=== PATIENT | female | born 1980 | race Caucasian/White ===

== ENCOUNTER 2018-10-23 07:53 | Day surgery (SDC) | payer BC, OTHER ==
[2018-10-19 10:34] VITALS: BMI 28.0
[~2018-10-23 07:53] MED LIST: LACTATED RINGERS 1,000 ML IV SCH; LIDOCAINE 1% 20 ML VIAL (10MG/ML) FOR IV START INTRADERMA PRN
[2018-10-23 08:19] VITALS: TEMP 98.2
[2018-10-23] MEDS ORDERED: LIDOCAINE 1% INJ 10MG/ML (20 ML MDV) ONE (08:47)
[2018-10-23] MEDS ORDERED: PROPOFOL 10 MG/ML 20 ML VIAL IV ONE (08:47)
--- NOTE | 2018-10-23 09:11 | P.PCN ---
Date of Procedure: 10/23/18 Procedure(s) Performed: Procedure: Esophagogastroduodenoscopy and biopsy. Preoperative diagnosis: Chronic reflux symptoms despite therapy. Postoperative diagnosis: 1. Small sliding hiatal hernia with no obvious esophagitis or complicated reflux disease. 2. Mild antral gastritis. 3. Multiple biopsies obtained from the duodenum, antrum and esophagus. Preparation and sedation: Was provided by anesthesia. Brief clinical history: The patient is a 37-year-old female who is scheduled for this evaluation because of chronic reflux symptoms. She has been also complaining of nausea and vomiting. She has been restarted on omeprazole 40 mg daily for more than 4 weeks with partial response at this time. This evaluation is to assess for esophagitis, complicated reflux disease, or other pathology. Procedure: With the patient on her left lateral decubitus position and after informed consent and adequate sedation, I passed the Olympus-GIF 03/29/2019 video upper endoscope through the cricopharyngeus down the esophagus. GE junction was around 39 cm from the incisors and there was a small sliding hiatal hernia but no obvious esophagitis or complicated reflux disease. The endoscope was then passed into the stomach which was insufflated with air and inspected in detail including the retroflex view in the cardia. There was some mottling and erythema in the antrum but no ulcers or erosions. Pyloric channel , duodenal bulb, post bulbar area and descending duodenum appeared within normal limits. Because of her symptoms, I obtained biopsies from the duodenum, antrum and esophagus then the endoscope was withdrawn. The patient tolerated the procedure well. Plan: The patient was reassured. She was advised to continue antireflux diet and measures. Will await biopsy results and make further recommendations based on her course and biopsy results. She will follow-up with you as planned and I will keep you updated on her progress.
[2018-10-23 09:13] VITALS: RESP 18
[2018-10-23 09:30] VITALS: BP 100/67; PULSE 72
== END 2018-10-23 09:52 | disposition home or self-care (01) ==
LOC: ORWHC2ENDO 07:53
DX: K29.50 Unspecified chronic gastritis without bleeding (principal); K21.9 Gastro-esophageal reflux disease without esophagitis; K44.9 Diaphragmatic hernia without obstruction or gangrene; J45.909 Unspecified asthma, uncomplicated; F39 Unspecified mood [affective] disorder; Z79.899 Other long term (current) drug therapy; Z88.0 Allergy status to penicillin
CPT/HCPCS: 81025; 88305; 43239; J2001; J2704

== ENCOUNTER 2020-02-28 12:40 | Emergency (ER) | payer OTHER ==
[2020-02-28 13:07] VITALS: RESP 18
[2020-02-28] MEDS ORDERED: PANTOPRAZOLE 40 MG/10 ML VIAL IVP STA (13:31)
[2020-02-28] MEDS ORDERED: SODIUM CHLORIDE 0.9% 1,000 ML IV STA (13:31)
[2020-02-28] MEDS ORDERED: SODIUM CHLORIDE 0.9% 500 ML 500 ML IV STA (13:31)
--- NOTE | 2020-02-28 13:34 | ED ---
GI Bleed HPI - General Chief complaint: Abdominal Pain Stated complaint: Abd pain,Diarrhea Time Seen by Provider: 02/28/20 13:31 Source: patient, RN notes reviewed, old records reviewed Mode of arrival: ambulatory Limitations: no limitations - History of Present Illness Initial comments: This is a 39-year-old female DF for evaluation patient has a for evaluation of blood in the stool blood mixed with stool with diffuse abdominal pain. No fevers no history of similar symptoms. No blood thinners. No trauma. 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 with similar complaint MD complaint: blood streaked stool -: days(s) Severity scale (1-10): 3 Quality: cramping Consistency: constant Improves with: none Worsens with: none Associated Symptoms: abdominal pain, nausea Treatments Prior to Arrival: none - Related Data Home Medications Medication Instructions Recorded Confirmed ALPRAZolam [Xanax] 0.25 mg PO BID PRN 01/18/16 10/23/18 Albuterol Sulfate [Proair Hfa] 2 puff INHALATION Q6HR PRN 10/19/18 10/23/18 Dextroamphetamine/Amphetamine 50 mg PO DAILY 10/19/18 10/19/18 [Mydayis ER 50 mg Capsule] Famotidine [Pepcid] 20 mg PO BID 10/19/18 10/19/18 Omeprazole [PriLOSEC] 40 mg PO DAILY 10/19/18 10/19/18 PARoxetine HCL [Paxil Cr] 37.5 mg PO HS 10/19/18 10/19/18 Sucralfate [Carafate] 1 gm PO ACHS 10/19/18 10/19/18 Ziprasidone HCl [Geodon] 40 mg PO HS 10/19/18 10/19/18 Allergies Allergy/AdvReac Type Severity Reaction Status Date / Time Penicillins Allergy Rash/Hives Verified 02/28/20 13:07 Review of Systems ROS Statement: Those systems with pertinent positive or pertinent negative responses have been documented in the HPI. ROS Other: All systems not noted in ROS Statement are negative. Past Medical History Past Medical History: Asthma, GERD/Reflux Additional Past Medical History / Comment(s): ABDOMINAL PAIN, VOMITING History of Any Multi-Drug Resistant Organisms: None Reported Past Surgical History: Tonsillectomy Additional Past Surgical History / Comment(s): sinus sx Past Anesthesia/Blood Transfusion Reactions: Motion Sickness Past Psychological History: ADD/ADHD, Anxiety, Bipolar Smoking Status: Current every day smoker Past Alcohol Use History: Occasional Past Drug Use History: Marijuana - Past Family History Mother Family Medical History: Cancer Additional Family Medical History / Comment(s): LUNG CANCER Father Family Medical History: Cancer General Exam Limitations: no limitations General appearance: alert, in no apparent distress Head exam: Present: atraumatic, normocephalic, normal inspection Eye exam: Present: normal appearance, PERRL, EOMI. Absent: scleral icterus, conjunctival injection, periorbital swelling ENT exam: Present: normal exam, mucous membranes moist Neck exam: Present: normal inspection. Absent: tenderness, meningismus, lymphadenopathy Respiratory exam: Present: normal lung sounds bilaterally. Absent: respiratory distress, wheezes, rales, rhonchi, stridor Cardiovascular Exam: Present: normal rhythm, tachycardia, normal heart sounds. Absent: systolic murmur, diastolic murmur, rubs, gallop, clicks GI/Abdominal exam: Present: soft, normal bowel sounds. Absent: distended, tenderness, guarding, rebound, rigid Extremities exam: Present: normal inspection, full ROM, normal capillary refill. Absent: tenderness, pedal edema, joint swelling, calf tenderness Back exam: Present: normal inspection Neurological exam: Present: alert, oriented X3, CN II-XII intact Psychiatric exam: Present: normal affect, normal mood Skin exam: Present: warm, dry, intact, normal color. Absent: rash Course Vital Signs 02/28/20 13:04 Temperature 98.2 F Pulse Rate 102 H Respiratory 18 Rate Blood Pressure 112/71 O2 Sat by Pulse 100 Oximetry - Reevaluation(s) Reevaluation #1: 02/28/20 15:01 Medical record is reviewed Reevaluation #2: 02/28/20 16:58 Patient refuses hospital admission feeling well Medical Decision Making - Medical Decision Making 39 female DF for evaluation patient has persistent colitis of GI bleed stool and blood patient does have significant colitis here in the ER no active bleeding no active diarrhea here in the ER will place on antibiotics and follow-up on outpatient surgery patient does not want inpatient admission - Lab Data Result diagrams: 02/28/20 13:50 02/28/20 13:50 Lab Results 02/28/20 02/28/20 02/28/20 Range/Units 13:45 13:50 13:50 WBC 18.5 H (3.8-10.6) k/uL RBC 4.95 (3.80-5.40) m/uL Hgb 14.8 (11.4-16.0) gm/dL Hct 46.7 H (34.0-46.0) % MCV 94.2 (80.0-100.0) fL MCH 29.8 (25.0-35.0) pg MCHC 31.6 (31.0-37.0) g/dL RDW 12.2 (11.5-15.5) % Plt Count 343 (150-450) k/uL Neutrophils % 84 % Lymphocytes % 10 % Monocytes % 4 % Eosinophils % 2 % Basophils % 0 % Neutrophils # 15.4 H (1.3-7.7) k/uL Lymphocytes # 1.8 (1.0-4.8) k/uL Monocytes # 0.7 (0-1.0) k/uL Eosinophils # 0.3 (0-0.7) k/uL Basophils # 0.0 (0-0.2) k/uL PT 9.6 (9.0-12.0) sec INR 0.9 (<1.2) APTT 23.8 (22.0-30.0) sec Sodium (137-145) mmol/L Potassium (3.5-5.1) mmol/L Chloride (98-107) mmol/L Carbon Dioxide (22-30) mmol/L Anion Gap mmol/L BUN (7-17) mg/dL Creatinine (0.52-1.04) mg/dL Est GFR (CKD-EPI)AfAm (>60 ml/min/1.73 sqM) Est GFR (CKD-EPI)NonAf (>60 ml/min/1.73 sqM) Glucose (74-99) mg/dL Calcium (8.4-10.2) mg/dL Magnesium (1.6-2.3) mg/dL Total Bilirubin (0.2-1.3) mg/dL AST (14-36) U/L ALT (4-34) U/L Alkaline Phosphatase (38-126) U/L Troponin I (0.000-0.034) ng/mL Total Protein (6.3-8.2) g/dL Albumin (3.5-5.0) g/dL Blood Type B Positive Blood Type Recheck No Previous Record Bld Type Recheck Status CABO Indicated Antibody Screen NEGATIVE Spec Expiration Date 03/02/2020234402/28/20 02/28/20 Range/Units 13:50 13:50 WBC (3.8-10.6) k/uL RBC (3.80-5.40) m/uL Hgb (11.4-16.0) gm/dL Hct (34.0-46.0) % MCV (80.0-100.0) fL MCH (25.0-35.0) pg MCHC (31.0-37.0) g/dL RDW (11.5-15.5) % Plt Count (150-450) k/uL Neutrophils % % Lymphocytes % % Monocytes % % Eosinophils % % Basophils % % Neutrophils # (1.3-7.7) k/uL Lymphocytes # (1.0-4.8) k/uL Monocytes # (0-1.0) k/uL Eosinophils # (0-0.7) k/uL Basophils # (0-0.2) k/uL PT (9.0-12.0) sec INR (<1.2) APTT (22.0-30.0) sec Sodium 135 L (137-145) mmol/L Potassium 4.2 (3.5-5.1) mmol/L Chloride 101 (98-107) mmol/L Carbon Dioxide 26 (22-30) mmol/L Anion Gap 8 mmol/L BUN 9 (7-17) mg/dL Creatinine 0.68 (0.52-1.04) mg/dL Est GFR (CKD-EPI)AfAm >90 (>60 ml/min/1.73 sqM) Est GFR (CKD-EPI)NonAf >90 (>60 ml/min/1.73 sqM) Glucose 88 (74-99) mg/dL Calcium 8.9 (8.4-10.2) mg/dL Magnesium 1.9 (1.6-2.3) mg/dL Total Bilirubin 1.4 H (0.2-1.3) mg/dL AST 18 (14-36) U/L ALT 15 (4-34) U/L Alkaline Phosphatase 63 (38-126) U/L Troponin I <0.012 (0.000-0.034) ng/mL Total Protein 6.7 (6.3-8.2) g/dL Albumin 3.9 (3.5-5.0) g/dL Blood Type Blood Type Recheck Bld Type Recheck Status Antibody Screen Spec Expiration Date - Radiology Data Radiology results: report reviewed (CT of the abdomen pelvis positive for colitis), image reviewed Disposition Clinical Impression: Colitis, GI bleed Disposition: HOME SELF-CARE Condition: Good Instructions (If sedation given, give patient instructions): Colitis (ED), Infectious Colitis (ED) Is patient prescribed a controlled substance at d/c from ED?: No Referrals: Lynsey Lang MD [STAFF PHYSICIAN] - 1-2 days Darryl Calderon MD [STAFF PHYSICIAN] - 1-2 days
[2020-02-28 14:12] LABS: Basophils % (A) 0 %; Eosinophils # (A) 0.3 k/uL (0-0.7); Eosinophils % (A) 2 %; HCT 46.7 % (34.0-46.0); HGB 14.8 gm/dL (11.4-16.0); Lymphocytes # (A) 1.8 k/uL (1.0-4.8); Lymphocytes % (A) 10 %; MCH 29.8 pg (25.0-35.0); MCHC 31.6 g/dL (31.0-37.0); MCV 94.2 fL (80.0-100.0); Mean Platelet Volume 7.1; Monocytes # (A) 0.7 k/uL (0-1.0); Monocytes % (A) 4 %; Neutrophils # (A) 15.4 k/uL (1.3-7.7); Neutrophils % (A) 84 %; Platelet Count 343 k/uL (150-450); RBC 4.95 m/uL (3.80-5.40); RDW 12.2 % (11.5-15.5); WBC 18.5 k/uL (3.8-10.6)
[2020-02-28 14:22] LABS: ALT 15 U/L (4-34); AST 18 U/L (14-36); African American GFR (CKD) >90 (>60 ml/min/1.73 sqM); Albumin 3.9 g/dL (3.5-5.0); Alkaline Phosphatase 63 U/L (38-126); Anion Gap 8 mmol/L; Blood Urea Nitrogen 9 mg/dL (7-17); Calcium 8.9 mg/dL (8.4-10.2); Carbon Dioxide 26 mmol/L (22-30); Chloride 101 mmol/L (98-107); Glucose 88 mg/dL (74-99); INR 0.9 (<1.2); Magnesium 1.9 mg/dL (1.6-2.3); Non-African American GFR(CKD) >90 (>60 ml/min/1.73 sqM); Partial Thromboplastin Time 23.8 sec (22.0-30.0); Potassium 4.2 mmol/L (3.5-5.1); Prothrombin Time 9.6 sec (9.0-12.0); Sodium 135 mmol/L (137-145); Total Bilirubin 1.4 mg/dL (0.2-1.3); Total Protein 6.7 g/dL (6.3-8.2)
[2020-02-28] MEDS ORDERED: MORPHINE SULFATE 4 MG/ML SYRINGE IVP STA (14:25)
--- NOTE | 2020-02-28 16:22 | CT ---
EXAMINATION TYPE: CT abdomen pelvis w con DATE OF EXAM: 02/28/2020 COMPARISON: NONE HISTORY: 39-year-old female Generalized abdominal pain. TECHNIQUE: Contiguous axial scanning of the abdomen and pelvis following administration of 100 ml Iso adan 300 IV contrast. Delayed images through the kidneys and coronal/sagittal reconstructions perform ed. CT DLP: 1075.3 mGycm Automated exposure control for dose reduction was used. FINDINGS: LUNG BASES: Some dependent atelectasis is noted. No pleural effusion. LIVER/GB: No significant abnormality is appreciated. PANCREAS: No significant abnormality is seen. SPLEEN: No significant abnormality is seen. ADRENALS: No significant abnormality is seen. KIDNEYS: Cortical cysts within the right kidney measuring 1.5 and 0.9 cm. Small cortical cyst medial left kidney measuring 7 mm. Symmetric uptake and excretion of contrast from both kidneys. LYMPH NODES: No mesenteric or retroperitoneal lymphadenopathy. BOWEL: Normal appendix. No dilated small bowel, free fluid, or free air. Moderate pancolonic wall thickening sparing the ascending colon. There is some loss of haustral bruna ngs especially of the transverse colon and mild pericolonic hazy inflammation. PELVIS: Arcuate configuration to the anteverted uterus. There is moderate cul-de-sac free fluid. Both ovaries are visualized. 2.1 cm dominant follicle or functional cyst in the right ovary. No pelvic ly mphadenopathy. BONES: No osseous destructive process. IMPRESSION: 1. MODERATE TO SEVERE INFECTIOUS OR INFLAMMATORY COLITIS SPARING THE ASCENDING COLON. INFLAMMATORY NADEEN WEL DISEASE IS ALSO IN THE DIFFERENTIAL. 2. MODERATE CUL-DE-SAC FREE FLUID COULD BE PHYSIOLOGIC OR COULD BE REACTIVE TO THE COLONIC INFLAMMATI ON. NO ABSCESS OR FREE AIR.
[2020-02-28 17:15] VITALS: BP 112/78; PULSE 86; TEMP 97.5
== END 2020-02-28 17:15 | disposition home or self-care (01) ==
LOC: EC 12:40
DX: K52.9 Noninfective gastroenteritis and colitis, unspecified (principal); K21.9 Gastro-esophageal reflux disease without esophagitis; J45.909 Unspecified asthma, uncomplicated; F41.9 Anxiety disorder, unspecified; F90.9 Attention-deficit hyperactivity disorder, unspecified type; F31.9 Bipolar disorder, unspecified; Z79.51 Long term (current) use of inhaled steroids; Z79.899 Other long term (current) drug therapy; Z88.0 Allergy status to penicillin; F17.200 Nicotine dependence, unspecified, uncomplicated
CPT/HCPCS: 36415; 86900; 86901; 80053; 83735; 84484; 85025; 85610; 85730; 86850; 74177; 99284; 96374; 96375; 96361 ×3; J2270; C9113; Q9967

== ENCOUNTER → 2021-09-21 | Outpatient (CLI) | payer OTHER ==
[2021-09-21 14:55] LABS: Chol/HDL Ratio 3.54 Ratio; LDL Cholesterol,Calculated 93.5 mg/dL (0.0-131.0); VLDL Calculation 13.42 mg/dL (5.00-40.00)
== END | disposition home or self-care (01) ==
LOC: LABWHC1 09:41
PROVIDERS: ATTEND Psychiatry & Neurology Geriatric Psychiatry
DX: F31.9 Bipolar disorder, unspecified (principal)
CPT/HCPCS: 36415; 80061; 83036; 84443

== ENCOUNTER → 2023-01-21 | Outpatient (CLI) | payer OTHER ==
[2023-01-21 16:04] LABS: Basophils # (A) 0.03 X 10*3/uL (0.00-0.10); Basophils % (A) 0.4 %; Eosinophils # (A) 0.16 X 10*3/uL (0.04-0.35); Eosinophils % (A) 2.3 %; HCT 42.1 % (37.2-46.3); HGB 13.7 g/dL (12.0-15.0); Immature Grans, Automated 0.3 %; Lymphocytes # (A) 2.15 X 10*3/uL (0.90-5.00); Lymphocytes % (A) 30.5 %; MCH 30.4 pg (27.0-32.0); MCHC 32.5 g/dL (32.0-37.0); MCV 93.3 fL (80.0-97.0); Mean Platelet Volume 10.2 fL (9.5-12.2); Monocytes % (A) 9.9 %; NRBC Per 100 WBC 0 /100 WBCS (0.0-0.0); Neutrophils % (A) 56.6 %; Platelet Count 340 X 10*3/uL (140-440); RBC 4.51 X 10*6/uL (4.10-5.20); RBC Morphology NORMAL; RDW 12.7 % (11.5-14.5); WBC 7.06 X 10*3/uL (4.50-10.00)
[2023-01-21 16:32] LABS: ALT 23 U/L (8-44); AST 22 U/L (13-35); African American GFR (CKD) 122.8 (60.0-200.0); Albumin 4.2 g/dL (3.8-4.9); Albumin/Globulin Ratio 1.87 (1.60-3.17); Alkaline Phosphatase 59 U/L (41-126); BUN/Creat Ratio 16.45 Ratio (12.00-20.00); Blood Urea Nitrogen 11.6 mg/dL (9.0-27.0); Carbon Dioxide 25.8 mmol/L (20.0-27.5); Chloride 104 mmol/L (96-109); Globulin 2.2 g/dL (1.6-3.3); Glucose 98 mg/dL (70-110); Potassium 4.4 mmol/L (3.5-5.5); Sodium 139 mmol/L (135-145); Total Bilirubin <0.15 mg/dL (0.30-1.20); Total Protein 6.4 g/dL (6.2-8.2)
== END | disposition home or self-care (01) ==
LOC: LABWHC1 08:27
PROVIDERS: ATTEND Physician Assistant
DX: F31.89 Other bipolar disorder (principal)
CPT/HCPCS: 36415; 80053; 82306; 82607; 82746; 84439; 84443; 85025

== ENCOUNTER → 2024-01-20 | Outpatient (CLI) | payer OTHER ==
[2024-01-20 18:17] LABS: Basophils # (A) 0.03 X 10*3/uL (0.00-0.10); Basophils % (A) 0.4 %; Eosinophils # (A) 0.18 X 10*3/uL (0.04-0.35); Eosinophils % (A) 2.3 %; HCT 43.1 % (37.2-46.3); HGB 13.9 g/dL (12.0-15.0); Lymphocytes # (A) 1.95 X 10*3/uL (0.90-5.00); Lymphocytes % (A) 24.4 %; MCH 30.2 pg (27.0-32.0); MCHC 32.3 g/dL (32.0-37.0); MCV 93.7 FL (80.0-97.0); Mean Platelet Volume 9.6 FL (9.5-12.2); Monocytes # (A) 0.54 X 10*3/uL (0.20-1.00); Monocytes % (A) 6.8 %; NRBC Per 100 WBC 0 X 10*3/uL (0.00-0.01); Neutrophils # (A) 5.27 X 10*3/uL (1.80-7.70); Neutrophils % (A) 65.7 %; Platelet Count 385 X 10*3/uL (140-440); RDW 12.3 % (11.5-14.5)
[2024-01-20 19:22] LABS: ALT 17 U/L (8-44); AST 21 U/L (13-35); Albumin 4.4 g/dL (3.8-4.9); Albumin/Globulin Ratio 1.91 Ratio (1.60-3.17); Alkaline Phosphatase 65 U/L (41-126); BUN/Creat Ratio 10.86 Ratio (12.00-20.00); Blood Urea Nitrogen 7.6 mg/dL (9.0-27.0); Calcium 9.1 mg/dL (8.7-10.3); Carbon Dioxide 23.9 mmol/L (21.6-31.8); Chloride 105 mmol/L (96-109); Globulin 2.3 g/dL (1.6-3.3); Glucose 97 mg/dL (70-110); Potassium 4.3 mmol/L (3.5-5.5); Sodium 140 mmol/L (135-145); T4, Free (Free Thyroxine) 1.23 ng/dL (0.80-1.80); Total Bilirubin 0.5 mg/dL (0.3-1.2); Total Protein 6.7 g/dL (6.2-8.2); Urine Alcohol Negative (Negative); Urine Barbiturate Negative (Negative); Urine Cocaine Negative (Negative); Urine Methadone Negative (Negative); Urine Opiates Negative (Negative); Urine Phencyclidine Negative (Negative)
== END | disposition home or self-care (01) ==
LOC: LABWHC1 12:52
DX: F31.89 Other bipolar disorder (principal); Z79.899 Other long term (current) drug therapy
CPT/HCPCS: 36415; 80053; 80306; 84439; 84443; 85025

== ENCOUNTER 2024-08-13 22:00 | Emergency (ER) | payer OTHER ==
[2024-08-13 22:06] VITALS: TEMP 98.5
--- NOTE | 2024-08-13 22:31 | ED ---
Extremity Problem HPI - General Chief complaint: Extremity Problem,Nontraumatic Stated complaint: L Foot Pain Time Seen by Provider: 08/13/24 22:13 Source: patient Mode of arrival: ambulatory Limitations: no limitations - History of Present Illness Initial comments: 43-year-old female presented with chief complaint of left foot pain. Pain has been ongoing for 5 days. Mainly by the MTP joint and on the ball of the foot. No injury or trauma. There is swelling and some slight redness. Feels like a burning pain that is worse with weightbearing and range of motion. No fever. No history of gout. No numbness tingling or weakness. She has been using a postop shoe which has been helping with the pain. Ibuprofen minimally helpful - Related Data Home Medications Medication Instructions Recorded Confirmed ALPRAZolam [Xanax] 0.25 mg PO BID PRN 01/18/16 10/23/18 Albuterol Sulfate [Proair Hfa] 2 puff INHALATION Q6HR PRN 10/19/18 10/23/18 Dextroamphetamine/Amphetamine 50 mg PO DAILY 10/19/18 10/19/18 [Mydayis ER 50 mg Capsule] Famotidine [Pepcid] 20 mg PO BID 10/19/18 10/19/18 Omeprazole [PriLOSEC] 40 mg PO DAILY 10/19/18 10/19/18 PARoxetine HCL [Paxil Cr] 37.5 mg PO HS 10/19/18 10/19/18 Sucralfate [Carafate] 1 gm PO ACHS 10/19/18 10/19/18 ziprasidone HCL [Geodon] 40 mg PO HS 10/19/18 10/19/18 Previous Rx's Medication Instructions Recorded Erythromycin [Kendell-Tab] 500 mg PO Q6HR #28 tablet 02/28/20 ondansetron HCL [Zofran] 4 mg PO Q8H PRN #30 tab 02/28/20 Indomethacin [Indocin] 50 mg PO TID PRN #15 capsule 08/14/24 Allergies Allergy/AdvReac Type Severity Reaction Status Date / Time Penicillins Allergy Rash/Hives Verified 08/13/24 22:05 Review of Systems ROS Statement: Those systems with pertinent positive or pertinent negative responses have been documented in the HPI. ROS Other: All systems not noted in ROS Statement are negative. Past Medical History Past Medical History: Asthma, GERD/Reflux Additional Past Medical History / Comment(s): ABDOMINAL PAIN, VOMITING History of Any Multi-Drug Resistant Organisms: None Reported Past Surgical History: Tonsillectomy Additional Past Surgical History / Comment(s): sinus sx Past Anesthesia/Blood Transfusion Reactions: Motion Sickness Past Psychological History: ADD/ADHD, Anxiety, Bipolar Smoking Status: Current every day smoker, Vaper Past Alcohol Use History: Occasional Past Drug Use History: Marijuana - Past Family History Mother Family Medical History: Cancer Additional Family Medical History / Comment(s): LUNG CANCER Father Family Medical History: Cancer General Exam Limitations: no limitations General appearance: alert, in no apparent distress Head exam: Present: atraumatic, normocephalic, normal inspection Eye exam: Present: normal appearance, EOMI Neck exam: Present: normal inspection. Absent: meningismus Respiratory exam: Absent: respiratory distress Cardiovascular Exam: Present: regular rate Left Lower Leg exam: Present: normal inspection. Absent: tenderness, swelling Foot/Toe exam: Present: tenderness, swelling. Absent: full ROM Neurovascular tendon exam: Present: no vascular compromise Neurological exam: Present: alert, oriented X3 Psychiatric exam: Present: normal affect, normal mood Skin exam: Present: warm, dry Course Vital Signs 08/13/24 08/14/24 22:03 00:11 Temperature 98.5 F Pulse Rate 88 65 Respiratory 18 16 Rate Blood Pressure 137/77 117/77 O2 Sat by Pulse 100 98 Oximetry Medical Decision Making - Medical Decision Making Was pt. sent in by a medical professional or institution (, PA, BACK FACER, urgent care, hospital, or usp...) When possible be specific @ -No Did you speak to anyone other than the patient for history (EMS, parent, family, police, friend...)? What history was obtained from this source @ -No Did you review nursing and triage notes (agree or disagree)? Why? @ -I reviewed and agree with nursing and triage notes Were old charts reviewed (outside hosp., previous admission, EMS record, old EKG, old radiological studies, urgent care reports/EKG's, usp records)? Report findings @ -No old charts were reviewed Differential Diagnosis (chest pain, altered mental status, abdominal pain women, abdominal pain men, vaginal bleeding, weakness, fever, dyspnea, syncope, headache, dizziness, GI bleed, back pain, seizure, CVA, palpatations, mental health, musculoskeletal)? @ -Differential Musculoskeletal Muscular strain, contusion, ligament sprain, fracture, arthritis, septic arthritis, bursitis, cellulitis, muscle spasm, nerve compression, DVT, arterial occlusion, herpes zoster, electrolyte abnormality, tumor.... This is not meant to be in all inclusive list EKG interpreted by me (3pts min.). @ -As above X-rays interpreted by me (1pt min.). @ -X-ray of the foot is unremarkable CT interpreted by me (1pt min.). @ -None done U/S interpreted by me (1pt. min.). @ -None done What testing was considered but not performed or refused? (CT, X-rays, U/S, labs)? Why? @ -None What meds were considered but not given or refused? Why? @ -None Did you discuss the management of the patient with other professionals (professionals i.e. , PA, BACK FACER, lab, RT, psych nurse, manager social work, commercial production editor, teacher, sewage reticulation drafting officer, manager of case)? Give summary @ -No Was smoking cessation discussed for >3mins.? @ -No Was critical care preformed (if so, how long)? @ -No Were there social determinants of health that impacted care today? How? (Homelessness, low income, unemployed, alcoholism, drug addiction, transportation, low edu. Level, literacy, decrease access to med. care, fpc, rehab)? @ -No Was there de-escalation of care discussed even if they declined (Discuss DNR or withdrawal of care, Hospice)? DNR status @ -No What co-morbidities impacted this encounter? (DM, HTN, Smoking, COPD, CAD, Cancer, CVA, ARF, Chemo, Hep., AIDS, mental health diagnosis, sleep apnea, morbid obesity)? @ -None Was patient admitted / discharged? Hospital course, mention meds given and route, prescriptions, significant lab abnormalities, going to OR and other pe rtinent info. @ -43-year-old female presenting with chief complaint of left foot pain. Patient is having pain and swelling to the left foot near the MTP joint. X-ray shows no acute process. Lab work requires no further action. Presentation is most consistent with gout. Patient is treated with Toradol and Decadron and reports improvement in her symptoms. Patient will be treated at home with indomethacin. Discharged. Follow-up with PCP. Report back to ER with any new or worsening symptoms. Discussed return parameters and answered all questions. Patient conveyed verbal understanding and agreed to the plan. I discussed this case in detail with my attending Dr. Sukhjinder TRINIDAD: No lightheadedness or hoarseness. Undiagnosed new problem with uncertain prognosis? @ -No Drug Therapy requiring intensive monitoring for toxicity (Heparin, Nitro, Insulin, Cardizem)? @ -No Were any procedures done? @ -No Diagnosis/symptom? @ -Gout Acute, or Chronic, or Acute on Chronic? @ -Acute Uncomplicated (without systemic symptoms) or Complicated (systemic symptoms)? @ -Uncomplicated Side effects of treatment? @ -No Exacerbation, Progression, or Severe Exacerbation? @ -No Poses a threat to life or bodily function? How? (Chest pain, [place], [place], pneumonia, PE, COPD, DKA, ARF, appy, cholecystitis, CVA, Diverticulitis, Homicidal, Suicidal, threat to staff... and all critical care pts) @ -Unlikely - Lab Data Result diagrams: 08/13/24 22:46 08/13/24 22:46 Lab Results 08/13/24 08/13/24 08/13/24 Range/Units 22:46 22:46 22:46 WBC 9.8 (3.8-10.6) k/uL RBC 4.30 (3.80-5.40) m/uL Hgb 13.0 (11.4-16.0) gm/dL Hct 39.6 (34.0-46.0) % MCV 92.0 (80.0-100.0) fL MCH 30.2 (25.0-35.0) pg MCHC 32.8 (31.0-37.0) g/dL RDW 12.0 (11.5-15.5) % Plt Count 329 (150-450) k/uL MPV 6.8 Neutrophils % 64 % Lymphocytes % 25 % Monocytes % 6 % Eosinophils % 4 % Basophils % 0 % Neutrophils # 6.3 (1.3-7.7) k/uL Lymphocytes # 2.4 (1.0-4.8) k/uL Monocytes # 0.6 (0-1.0) k/uL Eosinophils # 0.4 (0-0.7) k/uL Basophils # 0.0 (0-0.2) k/uL Sodium 135 L (137-145) mmol/L Potassium 3.6 (3.5-5.1) mmol/L Chloride 104 (98-107) mmol/L Carbon Dioxide 24 (22-30) mmol/L Anion Gap 7 mmol/L BUN 9 (7-17) mg/dL Creatinine 0.69 (0.52-1.04) mg/dL Est GFR (CKD-EPI)AfAm >90 (>60 ml/min/1.73 sqM) Est GFR (CKD-EPI)NonAf >90 (>60 ml/min/1.73 sqM) Glucose 101 H (74-99) mg/dL Plasma Lactic Acid Alvino 1.4 (0.7-2.0) mmol/L Uric Acid 3.9 (3.7-7.4) mg/dL Calcium 9.0 (8.4-10.2) mg/dL Total Bilirubin 0.7 (0.2-1.3) mg/dL AST 21 (14-36) U/L ALT 19 (4-34) U/L Alkaline Phosphatase 55 (38-126) U/L Total Protein 6.5 (6.3-8.2) g/dL Albumin 4.2 (3.5-5.0) g/dL Disposition Clinical Impression: Gout Disposition: HOME SELF-CARE Condition: Good Instructions (If sedation given, give patient instructions): Low Purine Diet (ED), Gout (ED) Additional Instructions: Follow-up with PCP. Report back to ER with any new or worsening symptoms. Take medication as prescribed. Prescriptions: Indomethacin [Indocin] 50 mg PO TID PRN #15 capsule PRN Reason: Pain Is patient prescribed a controlled substance at d/c from ED?: No Referrals: None,Stated [Primary Care Provider] - 1-2 days Les Toussaint MD [STAFF PHYSICIAN] - 1-2 days Time of Disposition: 00:02
--- NOTE | 2024-08-13 22:44 | XR ---
EXAMINATION TYPE: XR foot complete LT DATE OF EXAM: 08/13/2024 CLINICAL HISTORY: MTP pain. Burning and swelling since Tuesday TECHNIQUE: Frontal, lateral, and oblique images of the left foot are obtained. COMPARISON: None FINDINGS: There is no acute fracture/dislocation evident in the left foot. The joint spaces in the left foot appear within normal limits. The overlying soft tissue appears unremarkable. IMPRESSION: Unremarkable study. [facility], , 08/13/2024 10:41 PM
[2024-08-13] MEDS: DEXAMETHASONE SOD PHOSPHATE 10 MG/ML 1 ML VIAL IM STA (22:50)
[2024-08-13] MEDS: KETOROLAC 15 MG/ML 1 ML VIAL IM STA (22:50)
[2024-08-13 23:22] LABS: Basophils % (A) 0 %; Eosinophils # (A) 0.4 k/uL (0-0.7); Eosinophils % (A) 4 %; HCT 39.6 % (34.0-46.0); Lymphocytes # (A) 2.4 k/uL (1.0-4.8); Lymphocytes % (A) 25 %; MCH 30.2 pg (25.0-35.0); MCHC 32.8 g/dL (31.0-37.0); Mean Platelet Volume 6.8; Monocytes # (A) 0.6 k/uL (0-1.0); Monocytes % (A) 6 %; Neutrophils # (A) 6.3 k/uL (1.3-7.7); Neutrophils % (A) 64 %; Platelet Count 329 k/uL (150-450); WBC 9.8 k/uL (3.8-10.6)
[2024-08-13 23:46] LABS: ALT 19 U/L (4-34); AST 21 U/L (14-36); African American GFR (CKD) >90 (>60 ml/min/1.73 sqM); Albumin 4.2 g/dL (3.5-5.0); Alkaline Phosphatase 55 U/L (38-126); Anion Gap 7 mmol/L; Blood Urea Nitrogen 9 mg/dL (7-17); Carbon Dioxide 24 mmol/L (22-30); Chloride 104 mmol/L (98-107); Glucose 101 mg/dL (74-99); Non-African American GFR(CKD) >90 (>60 ml/min/1.73 sqM); Potassium 3.6 mmol/L (3.5-5.1); Sodium 135 mmol/L (137-145); Total Bilirubin 0.7 mg/dL (0.2-1.3); Total Protein 6.5 g/dL (6.3-8.2); Uric Acid 3.9 mg/dL (3.7-7.4)
[2024-08-14 00:14] VITALS: BP 117/77; PULSE 65; RESP 16
== END 2024-08-14 00:11 | disposition home or self-care (01) ==
LOC: EC 22:00
DX: M10.9 Gout, unspecified (principal); F17.290 Nicotine dependence, other tobacco product, uncomplicated; Z88.0 Allergy status to penicillin
CPT/HCPCS: 36415; 80053; 83605; 84550; 85025; 73630; 99284; 96372 ×2; J1100; J1885